=== PATIENT | female | born 1995 | race Hispanic/Latino ===

== ENCOUNTER 2018-08-20 18:07 | Emergency (ER) | payer BC ==
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
[2018-08-20 20:59] LABS: Urine Blood 2+ (NEG); Urine Glucose NEGATIVE (NEG); Urine Protein NEGATIVE (NEG)
[2018-08-20 21:01] LABS: Arterial Blood Carboxyhemoglob 0.6 % (0-1.5); Blood Gas Oxyhemoglobin 96.3 % (94-97); Blood O2 Saturation 97.8 % (92-98.5)
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
[2018-08-20 22:34] VITALS: TEMP 98.1; O2SAT 100
[2018-08-20 22:36] VITALS: BP 120/76
== END 2018-08-20 21:29 | disposition home or self-care (01) ==
LOC: ER 18:07
DX: R05 Cough (principal); T59.811A Toxic effect of smoke, accidental (unintentional), initial encounter; J70.5 Respiratory conditions due to smoke inhalation; Y92.89 Other specified places as the place of occurrence of the external cause
CPT/HCPCS: 71046; 81003; 81025; 82805; 99283

== ENCOUNTER 2018-11-06 16:00 | Observation (INO) | payer BC ==
[2018-11-06] MEDS ORDERED: ONDANSETRON 4 MG/2 ML VIAL IV PRN (16:48)
[2018-11-06 16:55] VITALS: BMI 21.2
[2018-11-06] MEDS: D5 0.9 NS 1,000 ML IV SCH ×2 (17:10→20:54)
[2018-11-06] MEDS: MORPHINE 2 MG/ML SYR IV PRN ×2 (18:25→22:15)
[2018-11-07 05:18] LABS: Absolute Monocytes 0.3 K/uL (0.1-1.3); Absolute Neutrophil 2.8 K/uL (1.8-8.0); Basophils % 0.3 % (0-1.3); Eosinophils % 2.2 % (0-4.4); Hematocrit 36.1 % (36.0-45.0); Lymphocytes % 23.1 % (15.3-44.8); MPV 9.7 fL (7.6-11.3); Monocytes % 6.8 % (3.3-12.3); RBC Red Blood Cell Count 4.09 M/uL (3.86-4.86)
[2018-11-07 05:36] LABS: ALT/SGPT 12 U/L (12-78); AST/SGOT 12 U/L (15-37); Albumin 3.2 g/dL (3.4-5.0); Alkaline Phosphatase 64 U/L (45-117); BUN Blood Urea Nitrogen 9 mg/dL (7-18); Bicarbonate 28 mmol/L (21-32); Bilirubin Total 0.8 mg/dL (0.2-1.0); Glucose Level 96 mg/dL (74-106); Protein, Total 5.8 g/dL (6.4-8.2); Sodium Level 143 mmol/L (136-145)
[2018-11-07] MEDS: D5 0.9 NS 1,000 ML IV SCH (06:06)
[2018-11-07] MEDS ORDERED: KCL 20 MEQ/100 mL IVPB 20 MEQ/100 ML BAG IV SCH (07:00)
[2018-11-07] MEDS ORDERED: D5NS KCL 20MEQ 20 MEQ/1,000 ML BAG IV SCH (08:00)
[2018-11-07 14:10] VITALS: BP 89/53; TEMP 97.4
--- NOTE | 2018-11-07 17:12 | HP ---
Date of Admission: 11/06/2018 Chief Complaint: Vomiting, diarrhea, and dehydration. History Of Present Illness: A 23-year-old female, who was brought to the office with 6 vomits and 7- 8 diarrheal liquid stools. The patient was found to have clinical dehydration with dizziness on shen ding up. The patient was admitted for IV antibiotic therapy. The patient has no history of vomiting of blood or dark stools. Past Medical History: Negative. Family History: Negative. Personal History: Nonsmoker. No home medicines. Review of Systems: No chest pain or shortness of breath. Physical Examination: General: Revealed a 23-year-old female with sunken face. Vital Signs: Blood pressure 112/60. HEENT: Negative. Neck: Supple. JVD negative. Chest: Clear. Heart: Regular. Abdomen: Mild diffuse tenderness. Bowel sounds present. Extremities: No edema. Neurologic: Negative. Laboratory Data: White count normal. Chem profile, potassium 3.0. Assessment: 1.Probable viral gastroenteritis. 2.Hypokalemia. Plan: The patient received IV fluids and Zofran and morphine for her pain. This morning, the patien izaiah is doing well without any diarrhea. She will be discharged and followed up in the office. KELLE/NILESH Voice ID: [id number]
== END 2018-11-07 11:41 | disposition home or self-care (01) ==
LOC: 2ND 16:13
PROVIDERS: ADMIT Internal Medicine; ATTEND Internal Medicine
DX: R19.7 Diarrhea, unspecified (principal); E86.0 Dehydration; E87.6 Hypokalemia
CPT/HCPCS: 36415; 80053; 85025; G0378; J2270